=== PATIENT | female | born 1985 | race Caucasian/White ===

== ENCOUNTER 2021-10-22 13:40 | Emergency (ER) | payer OTHER ==
[~2021-10-22] VITALS: Ht 167.6 cm; Wt 54.4 kg
[2021-10-22] MEDS ORDERED: PREDNISONE25 GM MC (14:02)
== END 2021-10-22 14:31 | disposition home or self-care (01) ==
LOC: ER 13:40
DX: A60.00 Herpesviral infection of urogenital system, unspecified (principal)

== ENCOUNTER 2022-10-27 08:56 | Inpatient (IN) | payer OTHER ==
[~2022-10-27] VITALS: Ht 167.6 cm; Wt 64.4 kg
[~2022-10-27 08:56] MED LIST: PREDNISONE25 GM MC
[2022-10-29] MEDS ORDERED: NAPR500T14 PO (08:52)
== END 2022-10-29 14:11 | disposition home or self-care (01) | DRG 807 ==
LOC: LDR 08:56 → OB/GYN 08:56
PROVIDERS: ADMIT Student in an Organized Health Care Education/Training Program; ATTEND Student in an Organized Health Care Education/Training Program
PROC: 10E0XZZ Delivery of Products of Conception, External Approach (ICD-10-PCS; principal; 2022-10-27)
PROC: 4A1HXCZ Monitoring of Products of Conception, Cardiac Rate, External Approach (ICD-10-PCS; 2022-10-27)
DX: O80 Encounter for full-term uncomplicated delivery (principal); Z37.0 Single live birth; Z3A.38 38 weeks gestation of pregnancy; Z20.822 Contact with and (suspected) exposure to COVID-19